=== PATIENT | male | born 1950 | race Caucasian/White ===

== ENCOUNTER 2019-05-24 11:08 | Emergency (ER) | payer MEDICARE, BC ==
[2019-05-24] MEDS ORDERED: Sodium Chloride 0.9% 10 ML Syringe FLUSH PRN (11:23)
--- NOTE | 2019-05-24 11:48 | EDM.PDOC ---
ED HPI GENERAL MEDICAL PROBLEM - General Chief Complaint: Chest Pain Stated Complaint: CHEST PAIN Time Seen by Provider: 05/24/19 11:37 - History of Present Illness INITIAL COMMENTS - FREE TEXT/NARRATIVE: 69-year-old male presents emergency room with chest pain. Patient developed chest pain early this morning around 3 AM that woke him up. It 's unusual chest pain last for 5-10 seconds and occurs substernally and radiates into his left arm to his elbow and then is gone. He's not had any diaphoresis nausea vomiting shortness of breath with this. He's had a history of a heart attack in the past but he was absolutely symptom-free with this this was discovered when he had a orthopedic injury he had a heart workup and underwent a stent placement. He is currently treated for hypertension diabetes and GERD he does take Plavix with his stent. - Related Data Allergies Allergy/AdvReac Type Severity Reaction Status Date / Time nut - unspecified Allergy Swollen Verified 05/24/19 11:36 Tongue shellfish derived Allergy Swollen Verified 05/24/19 11:36 Tongue Home Meds: Home Meds Aspirin [Low Dose Aspirin EC] 81 mg PO DAILY 05/24/19 [History] Brimonidine [Alphagan P 0.15% Ophth Soln] 1 drop EYEBOTH TID 05/24/19 [History] Canagliflozin [Invokana] 300 mg PO ACBREAKFAST 05/24/19 [History] Clopidogrel [Plavix] 75 mg PO DAILY 05/24/19 [History] Empagliflozin [Jardiance] 25 mg PO DAILY 05/24/19 [History] Ferrous Sulfate 325 mg PO DAILY 05/24/19 [History] Liraglutide [Victoza] 1.8 mg SQ DAILY 05/24/19 [History] Multivitamin with Iron [Daily Conrado with Iron] 1 tab PO DAILY 05/24/19 [History] Nitroglycerin [Nitrostat] 0.4 mg SL ASDIRECTED 05/24/19 [History] Pantoprazole [ProTONIX] 40 mg PO BID 05/24/19 [History] Pioglitazone [Actos] 30 mg PO DAILY 05/24/19 [History] Propranolol [Inderal] 10 mg PO QID 05/24/19 [History] atorvaSTATin [Lipitor] 10 mg PO BEDTIME 05/24/19 [History] metFORMIN [Glucophage] 500 mg PO BID 05/24/19 [History] Past Medical History HEENT History: Reports: Glaucoma, Impaired Vision Other HEENT History: wears eyeglasses. Cardiovascular History: Reports: DC Respiratory History: Reports: Asthma Musculoskeletal History: Reports: Fracture Endocrine/Metabolic History: Reports: Diabetes, Type II Hematologic History: Reports: Blood Transfusion(s) Oncologic (Cancer) History: Reports: Colon Dermatologic History: Reports: Eczema - Infectious Disease History Infectious Disease History: Reports: Chicken Pox, Measles, Mumps - Past Surgical History GI Surgical History: Reports: Colon, Other (See Below) Other GI Surgeries/Procedures: colon CA, states was constipated due to cancerous tumor. Musculoskeletal Surgical History: Reports: Hip Replacement Social & Family History - Tobacco Use Smoking Status *Q: Never Smoker Second Hand Smoke Exposure: No - Caffeine Use Caffeine Use: Reports: Coffee, Tea - Recreational Drug Use Recreational Drug Use: No ED ROS GENERAL - Review of Systems Review Of Systems: See Below Constitutional: Reports: No Symptoms HEENT: Reports: No Symptoms Respiratory: Reports: No Symptoms Cardiovascular: Reports: Chest Pain Endocrine: Reports: No Symptoms GI/Abdominal: Reports: No Symptoms : Reports: No Symptoms Musculoskeletal: Reports: No Symptoms Skin: Reports: No Symptoms Neurological: Reports: No Symptoms ED EXAM, GENERAL - Physical Exam Exam: See Below Exam Limited By: No Limitations General Appearance: Alert, No Apparent Distress, Other (When first observed him his vital signs are stable he would have frequent PACs on the monitor and this seemed to be associated when he had these brief episodes of chest pain. I did check several times and this seemed to have improved somewhat and he was not having symptoms) Head: Atraumatic, Normocephalic Neck: Normal Inspection, Supple, Non-Tender, Full Range of Motion Respiratory/Chest: No Respiratory Distress, Lungs Clear, Normal Breath Sounds, No Accessory Muscle Use, Chest Non-Tender, Other (Cannot cause any chest pain with palpation of the chest wall) Cardiovascular: Regular Rate, Rhythm, No Edema, No Murmur GI/Abdominal: Normal Bowel Sounds, Soft, Non-Tender, Other (No epigastric discomfort or other abdominal pain with palpation certainly nothing that triggers his chest discomfort) Back Exam: Normal Inspection. No: CVA Tenderness (L), CVA Tenderness (R) Extremities: Normal Inspection, No Pedal Edema Neurological: Alert, Oriented, Normal Cognition Skin Exam: Warm, Dry, Intact Course - Vital Signs Last Recorded V/S: Last Vital Signs Temp 36.7 C 05/24/19 11:15 Pulse 88 05/24/19 11:15 Resp 20 05/24/19 11:15 BP 114/68 05/24/19 11:15 Pulse Ox 98 05/24/19 11:15 - Orders/Labs/Meds Orders: Active Orders 24 hr Category Date Time Status EKG Documentation Completion [RC] STAT Care 05/24/19 11:23 Active Peripheral IV Care [RC] . DIRECTED Care 05/24/19 11:23 Active Magnesium Sulfate/Water [Magnesium Sulfate in Water Med 05/24/19 17:02 Active Premix] 2 gm Premix Bag 1 bag IV ONETIME Sodium Chloride 0.9% [Saline Flush] Med 05/24/19 11:23 Active 10 ml FLUSH ASDIRECTED PRN Peripheral IV Insertion Adult [OM.PC] Stat Oth 05/24/19 11:23 Ordered Medication Orders Magnesium Sulfate 2 gm/ Premix 50 mls @ 25 mls/hr IV ONETIME ONE Stop: 05/24/19 19:01 Last Admin: 05/24/19 17:08 Dose: 25 mls/hr Sodium Chloride (Saline Flush) 10 ml FLUSH ASDIRECTED PRN PRN Reason: Keep Vein Open Last Admin: 05/24/19 11:20 Dose: 10 ml Labs: Laboratory Tests 05/24/19 05/24/19 05/24/19 Range/Units 11:20 11:20 11:20 WBC 4.81 (4.23-9.07) K/mm3 RBC 4.27 L (4.63-6.08) M/mm3 Hgb 10.9 L D (13.7-17.5) gm/dl Hct 35.9 L (40.1-51.0) % MCV 84.1 (79.0-92.2) fl MCH 25.5 L (25.7-32.2) pg MCHC 30.4 L (32.2-35.5) g/dl RDW Std Deviation 48.1 H (35.1-43.9) fL Plt Count 53 L (163-337) K/mm3 MPV 12.2 (9.4-12.3) fl Neutrophils % (Manual) 65 H (40-60) % Band Neutrophils % 0 (0-10) % Lymphocytes % (Manual) 17 L (20-40) % Atypical Lymphs % 0 % Monocytes % (Manual) 11 H (2-10) % Eosinophils % (Manual) 6 (0.8-7.0) % Basophils % (Manual) 1 (0.2-1.2) Platelet Estimate Decreased Anisocytosis 1+ slight RBC Morph Comment P PT 11.7 (9.7-12.0) SECONDS INR 1.08 APTT 24 (22-31) SECONDS Sodium 141 (136-145) mEq/L Potassium 3.9 (3.5-5.1) mEq/L Chloride 106 (98-107) mEq/L Carbon Dioxide 23 (21-32) mEq/L Anion Gap 15.9 H (5-15) BUN 18 (7-18) mg/dL Creatinine 0.9 (0.7-1.3) mg/dL Est Cr Clr Drug Dosing 73.44 mL/min Estimated GFR (MDRD) > 60 (>60) mL/min BUN/Creatinine Ratio 20.0 H (14-18) Glucose 148 H (80-115) mg/dL Calcium 8.6 (8.5-10.1) mg/dL Magnesium 1.7 L (1.8-2.4) mg/dl Total Bilirubin 0.9 (0.2-1.0) mg/dL AST 26 (15-37) U/L ALT 40 (16-63) U/L Alkaline Phosphatase 56 (46-116) U/L Troponin I < 0.017 (0.00-0.056) ng/mL NT-Pro-B Natriuret Pep (0-125) pg/mL Total Protein 7.7 (6.4-8.2) g/dl Albumin 3.5 (3.4-5.0) g/dl Globulin 4.2 gm/dL Albumin/Globulin Ratio 0.8 L (1-2) 05/24/19 05/24/19 Range/Units 11:20 14:15 WBC (4.23-9.07) K/mm3 RBC (4.63-6.08) M/mm3 Hgb (13.7-17.5) gm/dl Hct (40.1-51.0) % MCV (79.0-92.2) fl MCH (25.7-32.2) pg MCHC (32.2-35.5) g/dl RDW Std Deviation (35.1-43.9) fL Plt Count (163-337) K/mm3 MPV (9.4-12.3) fl Neutrophils % (Manual) (40-60) % Band Neutrophils % (0-10) % Lymphocytes % (Manual) (20-40) % Atypical Lymphs % % Monocytes % (Manual) (2-10) % Eosinophils % (Manual) (0.8-7.0) % Basophils % (Manual) (0.2-1.2) Platelet Estimate Anisocytosis RBC Morph Comment PT (9.7-12.0) SECONDS INR APTT (22-31) SECONDS Sodium (136-145) mEq/L Potassium (3.5-5.1) mEq/L Chloride (98-107) mEq/L Carbon Dioxide (21-32) mEq/L Anion Gap (5-15) BUN (7-18) mg/dL Creatinine (0.7-1.3) mg/dL Est Cr Clr Drug Dosing mL/min Estimated GFR (MDRD) (>60) mL/min BUN/Creatinine Ratio (14-18) Glucose (80-115) mg/dL Calcium (8.5-10.1) mg/dL Magnesium (1.8-2.4) mg/dl Total Bilirubin (0.2-1.0) mg/dL AST (15-37) U/L ALT (16-63) U/L Alkaline Phosphatase (46-116) U/L Troponin I < 0.017 (0.00-0.056) ng/mL NT-Pro-B Natriuret Pep 32 (0-125) pg/mL Total Protein (6.4-8.2) g/dl Albumin (3.4-5.0) g/dl Globulin gm/dL Albumin/Globulin Ratio (1-2) Meds: Medications Generic Name Dose Route Start Last Admin Trade Name Freq PRN Reason Stop Dose Admin Magnesium Sulfate 2 gm/ Premix 50 mls @ 25 mls/hr 05/24/19 17:02 05/24/19 17: 08 IV 05/24/19 19:01 25 mls/hr ONETIME ONE Administration Sodium Chloride 10 ml 05/24/19 11:23 05/24/19 11:20 Saline Flush FLUSH 10 ml ASDIRECTED PRN Administration Keep Vein Open - Re-Assessments/Exams Free Text/Narrative Re-Assessment/Exam: 05/24/19 17:21 Labs were reviewed his troponin was negative I did recommend checking a second troponin and he agreed to this this was checked I am when I was discussing the results the second troponin with the patient, he was having more of these episodes and was having frequent PACs again did review his labs he is magnesium was low at 1.7 we'll give him a couple grams of mag and see if this helps 05/24/19 17:53 Patient is received the infusion of magnesium his PACs of decreased dramatically he still has some intermittent chest discomfort the last 5-10 seconds that is gone but is less severe and less frequent than it was. Point we' ll discharge patient home his potassium was in the normal range but 3.9 sodium 20 mEq orally was here to see if this is contributing to we will start him on Mag-Ox 400 mg a day. Departure - Departure Time of Disposition: 17:55 Disposition: Home, Self-Care 01 Clinical Impression: Chest pain, PAC (premature atrial contraction) Referrals: Marie Mcmullen PA-C [Primary Care Provider] - Forms: ED Department Discharge Additional Instructions: Return to the emergency room with any questions problems or worsening symptoms. Follow-up in the clinic in a couple of days. Start magnesium oxide 400 mg 1 daily start tonight. Sepsis Event Note - Evaluation Sepsis Screening Result: No Definite Risk - Focused Exam Vital Signs: Vital Signs Temp Pulse Resp BP Pulse Ox 05/24/19 11:15 36.7 C 88 20 114/68 98 Date Exam was Performed: 05/24/19 Time Exam was Performed: 17:53 - My Orders Last 24 Hours: My Active Orders 05/24/19 17:02 Magnesium Sulfate/Water [Magnesium Sulfate in Water Premix] 2 gm Premix Bag 1 bag IV ONETIME - Assessment/Plan Last 24 Hours: My Active Orders 05/24/19 17:02 Magnesium Sulfate/Water [Magnesium Sulfate in Water Premix] 2 gm Premix Bag 1 bag IV ONETIME
--- NOTE | 2019-05-24 12:41 | CR ---
Chest: Portable view of the chest was obtained. Comparison: No prior chest x-ray. Heart size is normal. Tortuous thoracic aorta is seen. Scoliosis is noted within the spine with scattered disc space narrowing and endplate osteophytes. Lungs are clear with no acute parenchymal change. Impression: 1. Findings as noted above. 2. Nothing acute is identified on portable chest x-ray. Diagnostic code #2 This report was dictated in [place] Standard Time
[2019-05-24] MEDS ORDERED: Magnesium Sulfate/Water 2 GM in Premix Bag 1 BAG IV ONE (17:02)
[2019-05-24] MEDS ORDERED: Potassium Chloride 20 MEQ Tab.ER PO ONE (18:04)
== END 2019-05-24 18:18 | disposition home or self-care (01) ==
LOC: JD.ED 11:08
DX: I49.1 Atrial premature depolarization (principal); I25.2 Old myocardial infarction; Z79.82 Long term (current) use of aspirin; Z79.02 Long term (current) use of antithrombotics/antiplatelets; Z91.013 Allergy to seafood; Z91.018 Allergy to other foods; Z79.84 Long term (current) use of oral hypoglycemic drugs
CPT/HCPCS: 36415; 71045; 80053; 83735; 83880; 84484; 85007; 85027; 85610; 85730; 93005; 96365; 99285; A9270; J3475; 99283